=== PATIENT | male | born 1990 | race Caucasian/White ===

== ENCOUNTER 2020-03-05 10:19 | Outpatient (CLI) | payer BC, MEDICAID, SELFPAY ==
--- NOTE | 2020-03-05 10:37 | XR_ITS ---
WS: [id number] SHOULDER LEFT TECHNIQUE: 3 views of the left shoulder CLINICAL INFORMATION: SHOULDER JOINT PAIN, LEFT COMPARISON: None. FINDINGS: Normal acromioclavicular joint. Normal glenohumeral joint. Acromion is normal in appearance. Normal g lenoid. No evidence of acute fracture dislocation. XR/XR shoulder LT min 2V* [id number] IMPRESSION: Normal left shoulder.
== END 2020-03-05 10:20 | disposition home or self-care (01) ==
PROVIDERS: Family Provider Nurse Practitioner Family; PCP Nurse Practitioner Family; Visit Provider Nurse Practitioner Family
DX: M25.512 Pain in left shoulder (principal)
CPT/HCPCS: 73030

== ENCOUNTER 2020-03-21 14:18 | Outpatient (CLI) | payer BC, MEDICAID, SELFPAY ==
--- NOTE | 2020-03-21 14:25 | MR_ITS ---
WS: [id number] MRI LEFT SHOULDER NONCONTRAST TECHNIQUE: Sagittal T2, coronal T1, T2 and proton density imaging. Axial gradient PDE imaging. CLINICAL INFORMATION: LEFT SHOULDER JOINT PAIN COMPARISON: None. FINDINGS: Mild degenerative arthritis AC joint with mild downsloping of the acromion. Normal subacromial space. Supraspinatus is normal. Infraspinatus is normal. Normal teres minor. Normal subscapularis. No rotat or cuff tears. Normal biceps tendon in the bicipital groove. Glenoid labrum appears grossly normal. Normal biceps la bral anchor. Slight degenerative fraying of the glenoid labrum. MR/MR shoulder LT wo con* [id number] IMPRESSION: 1. Mild degenerative arthritis AC joint with mild downsloping of the acromion. 2. Normal rotator cuff. No high-grade rotator cuff tear. 3. Normal biceps tendon in the bicipital groove. 4. Mild degenerative fraying of the glenoid labrum. No gross labral tears. Bic eps labral anchor appears intact.
== END 2020-03-21 14:19 | disposition home or self-care (01) ==
LOC: RADWPI 14:23
PROVIDERS: Family Provider Nurse Practitioner Family; PCP Nurse Practitioner Family; Visit Provider Nurse Practitioner Family
DX: M19.012 Primary osteoarthritis, left shoulder (principal)
CPT/HCPCS: 73221

== ENCOUNTER 2020-04-02 14:44 | Outpatient (CLI) | payer BC, MEDICAID, SELFPAY ==
--- NOTE | 2020-04-02 | XR_ITS ---
WS: [id number] CERVICAL SPINE TECHNIQUE: 3 views of the cervical spine CLINICAL INFORMATION: CERVICALGIA COMPARISON: None. FINDINGS: Straightening of the normal cervical lordosis. Normal C1-2 articulation. Dens is normal in appearance . Normal prevertebral soft tissues. XR/XR cervical spine 3V* [id number] IMPRESSION: Normal cervical spine
== END 2020-04-02 14:45 | disposition home or self-care (01) ==
LOC: RADWPI 14:47
PROVIDERS: Family Provider Nurse Practitioner Family; PCP Nurse Practitioner Family; Visit Provider Nurse Practitioner Family
DX: M54.2 Cervicalgia (principal)
CPT/HCPCS: 72040

== ENCOUNTER → 2020-07-04 09:18 | Outpatient (BNVA) | payer BC, MEDICAID, SELFPAY | PROVIDERS: Family Provider Nurse Practitioner Family; PCP Nurse Practitioner Family; Referring Provider Nurse Practitioner Family; Visit Provider Anesthesiology Pain Medicine | DX: M54.12 Radiculopathy, cervical region (principal); M79.18 Myalgia, other site; F17.210 Nicotine dependence, cigarettes, uncomplicated | CPT/HCPCS: 20553; 99205; J1030; J3490 ==

== ENCOUNTER 2022-09-23 12:07 | Emergency (ER) | payer MEDICAID, SELFPAY ==
[2022-09-23] VITALS (7 sets, daily range): BP systolic 108–132; BP diastolic 70–90; PULSE 53–72; RESP 16–18; TEMP 36.8; O2SAT 93–100; BMI 23.6
--- NOTE | 2022-09-23 12:31 | CTR_ITS ---
PROCEDURE INFORMATION: Exam: CT Abdomen And Pelvis Without Contrast Exam date and time: 09/23/2022 1:04 PM Age: 31 years old Clinical indication: Pain; Other: Left lateral below ribs; Additional info: Flank pain TECHNIQUE: Imaging protocol: Computed tomography of the abdomen and pelvis without contrast. Radiation optimization: All CT scans at this facility use at least one of these dose optimization techniques: automated exposure control; mA and/or kV adjustment per patient size (includes targeted exams where dose is matched to clinical indication); or iterative reconstruction. COMPARISON: No relevant prior studies available. RADIATION DOSE METRICS: Total DLP (mGy-cm): 363 FINDINGS: Liver: Normal. No mass. Gallbladder and bile ducts: Normal. No calcified stones. No ductal dilation. Pancreas: Normal. No ductal dilation. Spleen: Normal. No splenomegaly. Adrenal glands: Normal. No mass. Kidneys and ureters: Normal. No hydronephrosis. Stomach and bowel: There are abnormal loops of jejunum in the left side of the abdomen. There is mural thickening of these loops and dilatation up to a diameter of 3.6 cm. Fluid is present throughout the small bowel. The colon is not dilated. Appendix: Normal appendix. Intraperitoneal space: Unremarkable. No free air. No significant fluid collection. Vasculature: Unremarkable. No abdominal aortic aneurysm. Lymph nodes: Unremarkable. No enlarged lymph nodes. Urinary bladder: Unremarkable as visualized. Reproductive: Unremarkable as visualized. Bones/joints: Unremarkable. No acute fracture. Soft tissues: Unremarkable. CT/CT abdomen pelvis wo con [id number] IMPRESSION: There are dilated fluid-filled loops of jejunum with mural thickening in the left side of the abdomen. Fluid is present in distal nondilated loops of small bowel. These findings can be seen with inflammatory bowel disease though a partial mid small bowel obstruction is not excluded.
--- NOTE | 2022-09-23 12:39 | ED_ITS ---
HPI - Abdominal Pain General: Chief Complaint: Abdominal Pain Stated Complaint: left side abd pain and nausea Time Seen by Provider: 09/23/22 12:30 History of Present Illness: 29-year-old male who presents with left flank pain associated with left upper and mid abdominal pain that came on acutely this morning. He describes the pain as crampy in nature, waxing and waning in intensity. He had also associated nausea and vomiting, vomiting multiple times this morning. He is noted the past couple of days that his urine has been more dark in nature and has had some difficulty urinating. He states his bowel movements have been normal. No prior history of kidney stones. No previous abdominal surgeries. No fever. Associated Symptoms: Reports nausea and vomiting; Denies change in bowel habits, chills, constipation, diarrhea, fever(s) and hematochezia Review of Systems Const: Denies: fever(s) or chills Eyes: Denies: change in vision ENMT: Denies: throat pain Card: Denies: chest pain or dyspnea on exertion Resp: Denies: dyspnea or productive cough GI: Reports: abdominal pain, nausea and vomiting; Denies: diarrhea, constipation, change in bowel habits or hematochezia : Reports: flank pain and difficulty urinating Musc: Reports: neck pain, extremity pain and limited range of motion Skin/Breast: Denies: changes in skin color or dry skin Neuro: Denies: headache(s) Psych: Reports: anxiety Juan/Lymph: Denies: easy bruising or easy bleeding PFSH ED PFSH: Family History (Updated 07/04/20 @ 09:42 by KIRA Price) Father Cancer lung cancer Psychiatric illness Unknown Diabetes Social History Smoking and tobacco status: current every day smoker Alcohol intake: current Alcohol intake frequency: holidays/special occasions only Physical Exam Const: COMMON NORMALS: average body habitus, patient oriented x3 and no limitations HENMT: COMMON NORMALS: hearing grossly normal bilaterally and external ears normal EXTERNAL EAR: Yes external ears normal Eye: COMMON NORMALS: conjunctivae normal and no scleral icterus CONJUNCTIVA: Yes conjunctivae normal Neck/C-Spine: COMMON NORMALS: no JVD Resp: COMMON NORMALS: No use of accessory muscles and clear to auscultation bilaterally AUSCULTATION: clear to auscultation bilaterally Cardio: COMMON NORMALS: no JVD, S1 normal heart sound present and S2 normal heart sound present HEART SOUNDS: S1 normal heart sound present and S2 normal heart sound present GI: COMMON NORMALS: Normal to inspection, nondistended, normoactive bowel sounds present and Soft to palpation PALPATION: Yes Soft to palpation, Yes Tenderness to palpation present (GI) (Tenderness in the left upper and lower quadrants as well as left flank area) Details: LLQ and LUQ, No Guarding due to palpation present (GI), No Rigid due to palpation and No Rebound tenderness present Extremity: OTHER: No deformity noted Neuro: COMMON NORMALS: patient oriented x3 Course ED course: Patient's been given IV fluids, IV Zofran and Toradol with minimal improvement. Was subsequently given morphine and Compazine. Laboratory eliane dies, white blood cell count is 9.5, hemoglobin 16.4, hematocrit 48.3. Platelets are 185 electrolytes are normal. BUN 14 creatinine 0.7 urinalysis he has 1+ ketones, 5-10 red blood cells, no white blood cells. CT of the abdomen and pelvis shows dilated loops of small bowel in the region of the jejunum and thickening of these bowel loops suspicious for probable inflammatory bowel disease. He could have a small partial bowel obstruction. We will p.o. challenge the patient. Reevaluation(s): Reevaluation #1: Patient's been given IV Zofran and IV Toradol with minimal improvement of his nausea and pain. We will give him IV morphine and Compazine. Discussed CT findings and laboratory findings with the patient. Vital Signs: Vital signs: Vital Signs Temperature 98.2 F 09/23/22 12:14 Pulse Rate 72 09/23/22 12:14 Respiratory Rate 16 09/23/22 15:11 Blood Pressure 132/90 09/23/22 12:14 Pulse Oximetry 97 09/23/22 15:11 Oxygen Delivery Me thod 09/23/22 12:14 MDM - Abdominal Pain Medical Decision Making 31 male who presents with left upper and lower quadrant abdominal pain associated with left flank pain, nausea and vomiting with difficulty urinating suggesting probable renal colic versus pyelonephritis. We will start an IV, give him IV fluids as well as Toradol for pain and Zofran for nausea. Will obtain labs including a CBC, CMP lipase and urinalysis. We will obtain a CT of his abdomen and pelvis to evaluate for possible kidney stones or other intra-abdominal etiologies. CT shows findings consistent with probably inflammatory bowel disease versus a mild small bowel obstruction. The patient has had no further vomiting in the ER. He said no previous abdominal surgeries I think that obstruction is not likely. Laboratory studies are unremarkable. Pain is controlled after dose of morphine. We will plan for discharge home on Levsin and Phenergan. Recommend he takes a daily probiotic. He will need follow-up with his primary care to get referred for GI evaluation. Return precautions have been discussed Differential Diagnosis Likely abdominal pain, calculus of kidney, constipation, diverticulitis, gastroenteritis, pancreatitis and small bowel obstruction Lab Data 09/23/22 12:39 09/23/22 12:39 Labs/Radiology: Radiology Impressions Abdomen/Pelvis CT 09/23/22 12:31 IMPRESSION: There are dilated fluid-filled loops of jejunum with mural thickening in the left side of the abdomen. Fluid is present in distal nondilated loops of small bowel. These findings can be seen with inflammatory bowel disease though a partial mid small bowel obstruction is not excluded. Laboratory Results WBC 9.5 10^3/uL (4.0-10.0) 09/23/22 12:39 RBC 5.48 10^6/uL (4.1-5.3) H 09/23/22 12:39 Hgb 16.4 g/dL (11.7-16.6) 09/23/22 12:39 Hct 48.3 % (42.0-52.0) 09/23/22 12:39 MCV 88.1 fl (80-94) 09/23/22 12:39 MCH 29.9 pg (28.0-34.0) 09/23/22 12:39 MCHC 34.0 g/dL (30.0-36.0) 09/23/22 12:39 RDW 12.1 % (12.1-15.1) 09/23/22 12:39 Plt Count 185 10^3/cmm (130-400) 09/23/22 12:39 MPV 9.6 fL (7.4-10.4) 09/23/22 12:39 Neut % (Auto) 57.8 % 09/23/22 12:39 Lymph % (Auto) 31.5 % 09/23/22 12:39 Butler % (Auto) 8.6 % 09/23/22 12:39 Eos % (Auto) 1.4 % 09/23/22 12:39 Baso % (Auto) 0.4 % 09/23/22 12:39 Neut # (Auto) 5.47 10^3/uL (1.8-7.7) 09/23/22 12:39 Lymph # (Auto) 3.0 10^3/uL (0.8-4.8) 09/23/22 12:39 Butler # (Auto) 0.8 10^3/uL (0.2-0.9) 09/23/22 12:39 Eos # (Auto) 0.1 10^3/uL (0.0-0.8) 09/23/22 12:39 Baso # (Auto) 0.0 10^3/uL (0.0-0.1) 09/23/22 12:39 Nucleated RBC % (auto) 0 % 09/23/22 12:39 Nucleated RBCs # 0.0 /100WBC 09/23/22 12:39 Sodium 138 mmol/L (136-145) 09/23/22 12:39 Potassium 3.5 mmol/L (3.5-5.1) 09/23/22 12:39 Chloride 102 mmol/L (98-107) 09/23/22 12:39 Carbon Dioxide 26 mmol/L (22-29) 09/23/22 12:39 Anion Gap 13.5 (5-19) 09/23/22 12:39 BUN 14 mg/dL (6-20) 09/23/22 12:39 Creatinine 0.7 mg/dL (0.7-1.2) 09/23/22 12:39 GFR Calculation 130.7 mL/min (90-130) H 09/23/22 12:39 Glucose 87 mg/dL (65-115) 09/23/22 12:39 Calculated Osmolality 286 mOsm/kg (285-295) 09/23/22 12:39 Calcium 8.9 mg/dL (8.5-10.5) 09/23/22 12:39 Total Bilirubin 0.5 mg/dL (0.15-1.2) 09/23/22 12:39 AST 20 U/L (0-40) 09/23/22 12:39 ALT 16 U/L (0-41) 09/23/22 12:39 Alkaline Phosphatase 58 U/L (40-130) 09/23/22 12:39 Total Protein 7.0 g/dL (6.6-8.7) 09/23/22 12:39 Albumin 4.8 g/dL (3.5-5.2) 09/23/22 12:39 Globulin 2.2 g/dL (1.3-4.6) 09/23/22 12:39 Lipase 20 U/L (13-60) 09/23/22 12:39 Urine Color Dark yellow (Yellow) 09/23/22 13:31 Urine Appearance Clear (CLEAR) 09/23/22 13:31 Urine pH 5 (5-7) 09/23/22 13:31 Ur Specific [place] 1.020 (1.005-1.030) 09/23/22 13:31 Urine Protein Trace (Negative) 09/23/22 13:31 Urine Glucose (UA) Norm (Normal) 09/23/22 13:31 Urine Ketones 1+ (Negative) H 09/23/22 13:31 Urine Blood 2+ (Negative) H 09/23/22 13:31 Urine Nitrate Negative (Negative) 09/23/22 13:31 Urine Bilirubin 1+ (Negative) H 09/23/22 13:31 Urine Urobilinogen 1 mg/dL (Negative) H 09/23/22 13:31 Ur Leukocyte Esterase Negative (Negative) 09/23/22 13:31 Urine RBC 5-10 /hpf (0-2) H 09/23/22 13:31 Urine WBC None /hpf (0-5) 09/23/22 13:31 Ur Squamous Epith Cells 0-4 /hpf (0-5) H 09/23/22 13:31 Amorphous Sediment Not Reportable 09/23/22 13:31 Urine Bacteria None /hpf (NONE) 09/23/22 13:31 Urine Mucus 2+ /hpf 09/23/22 13:31 Discharge Plan Discharge Patient Disposition: Home Clinical Impression: Inflammatory bowel disease Condition: Stable Prescriptions: New Levsin 0.125 mg tablet 0.125 mg PO Q6H PRN (Reason: dyspepsia) Qty: 30 0RF promethazine 25 mg tablet 25 mg PO QID PRN (Reason: nausea) Qty: 20 0RF Discharge Orders: Discharge ED (Routine); Ordered 09/23/22 Ordered By: Lorna Donaldson Referrals: Corey Hawk MD [Primary Care Provider] - Discharge Diet: Advance as tolerated and Clear Liquid Discharge Activity: Increase activity as tolerated Patient Instructions: Crohn Disease (ED), Opioid Safety, Pain Management Activity Restrictions/Additional Instructions: Take the Levsin 4 times daily as needed for pain. Take the Phenergan every 4-6 hours as needed for nausea and vomiting. Start with clear liquids, advance your diet as tolerated. Return if you have increased pain, fever or vomiting. You can also supplement with Tylenol or ibuprofen as needed for pain. You need to be on a high-fiber diet. Take a daily probiotic. Follow-up with your primary care doctor for GI referral in the next 3 to 5 days. Coding Level of Care Code ED Emergency Care Attendant for Chg Fwd Exam Detailed
[2022-09-23] MEDS: ondansetron 2 mg/ML SDV 2 mL 4 MG IVP (12:40)
[2022-09-23] MEDS: ketorolac 30 mg/mL INJ IVP (12:40)
[2022-09-23] MEDS: sodium chloride 0.9% 1,000 ML 999 ML IV (12:40)
[2022-09-23 12:44] LABS: Basophils % 0.4 %; Eosinophils # 0.1 10^3/uL (0.0-0.8); Eosinophils % 1.4 %; Hematocrit 48.3 % (42.0-52.0); Hemoglobin 16.4 g/dL (11.7-16.6); Lymphocytes % 31.5 %; Mean Corpuscular Hemoglobin 29.9 pg (28.0-34.0); Mean Corpuscular Volume 88.1 fl (80-94); Mean Platelet Volume 9.6 fL (7.4-10.4); Monocytes # 0.8 10^3/uL (0.2-0.9); Monocytes % 8.6 %; Neutrophils # 5.47 10^3/uL (1.8-7.7); Neutrophils % 57.8 %; Nucleated Red Blood Cells % 0 %; Platelet Count 185 10^3/cmm (130-400); Red Blood Count 5.48 10^6/uL (4.1-5.3); Red Cell Distribution Width 12.1 % (12.1-15.1); White Blood Count 9.5 10^3/uL (4.0-10.0)
[2022-09-23 13:12] LABS: Alanine Aminotransferase 16 U/L (0-41); Albumin Level 4.8 g/dL (3.5-5.2); Alkaline Phosphatase 58 U/L (40-130); Anion Gap 13.5 (5-19); Aspartate Amino Transferase 20 U/L (0-40); Blood Urea Nitrogen 14 mg/dL (6-20); Calcium 8.9 mg/dL (8.5-10.5); Carbon Dioxide 26 mmol/L (22-29); Chloride 102 mmol/L (98-107); Globulin 2.2 g/dL (1.3-4.6); Glomerular Filtration Rate 130.7 mL/min (90-130); Glucose 87 mg/dL (65-115); Lipase 20 U/L (13-60); Osmolality Calculated 286 mOsm/kg (285-295); Potassium 3.5 mmol/L (3.5-5.1); Sodium 138 mmol/L (136-145); Total Bilirubin 0.5 mg/dL (0.15-1.2)
[2022-09-23 13:44] LABS: Add Urine Microscopic? YES; Bilirubin Urine 1+ (Negative); Blood Urine 2+ (Negative); Glucose Urine UA Norm (Normal); Ketones Urine 1+ (Negative); Leukocyte Esterase Urine Negative (Negative); Mucus Urine 2+ /hpf; Nitrate Urine Negative (Negative); Protein Urine Trace (Negative); Squamous Epithelial Cell Urine 0-4 /hpf (0-5); Urine Appearance Clear (CLEAR); Urine Color Dark Yellow (Yellow); Urobilinogen Urine 1 mg/dL (Negative); pH Urine 5 (5-7)
[2022-09-23 13:45] LABS: Add Urine Culture? No
[2022-09-23] MEDS: morphine 4 mg/mL SDV 1 mL IVP (15:11)
[2022-09-23] MEDS: prochlorperazine 10 mg/2 mL Inj IVP (15:11)
== END 2022-09-23 15:44 | disposition home or self-care (01) ==
PROVIDERS: Emergency Provider Emergency Medicine; PCP Family Medicine
DX: K63.89 Other specified diseases of intestine (principal); F17.210 Nicotine dependence, cigarettes, uncomplicated
CPT/HCPCS: 74176; 80053; 81001; 83690; 85025; 96361; 96374; 96375; 99285; J0780; J1885; J2270; J2405; J7030

== ENCOUNTER → 2022-10-07 14:54 | Outpatient (BNVA) | payer MEDICAID, SELFPAY | PROVIDERS: PCP Family Medicine; Visit Provider Family Medicine | DX: K52.9 Noninfective gastroenteritis and colitis, unspecified (principal) | CPT/HCPCS: 80053; 84439; 84443; 85025; 85651; 86140 ==

== ENCOUNTER 2022-11-28 15:39 | Emergency (ER) | payer MEDICAID, SELFPAY ==
[2022-11-28 15:40] VITALS: BP 118/82; PULSE 65; RESP 16; TEMP 36.4; O2SAT 96
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
--- NOTE | 2022-11-28 15:52 | ED_ITS ---
HPI - Extremity Problem General: Chief complaint: Extremity Injury, Upper Stated complaint: right finger lac Time Seen by Provider: 11/28/22 15:39 History of Present Illness: Patient is a 32-year-old male comes to the ED with right hand finger laceration. Injury occurred just prior to arrival. Patient says he was working on some metal palak and accidentally cut his right middle and ring fingers on a metal piece. Patient use pressure bandage to help stop bleeding. He rates his pain currently a 7 out of 10. Patient is unsure of his last tetanus. Associated symptoms: Deny chest pain, fever(s) or rash Review of Systems Const: Denies: fever(s), chills or fatigue Eyes: Denies: change in vision or eye discomfort ENMT: Denies: throat pain, odynophagia, nasal discharge or nasal congestion Card: Denies: chest pain, palpitations, edema, swelling of feet/ankles, dyspnea on exertion or orthopnea Resp: Denies: dyspnea, productive cough or non-productive cough GI: Denies: abdominal pain, nausea, vomiting, diarrhea, constipation or hematochezia : Denies: flank pain, difficulty urinating, dysuria or hematuria Musc: Denies: neck pain, back pain or extremity swelling Skin/Breast: Reports: new lesions (Right hand-third and fourth digit laceration); Denies: rash Neuro: Denies: headache(s), numbness in extremities or weakness in extremities [facility] ED PFSH: Medical History No pertinent family history Surgical History History of tonsillectomy and adenoidectomy Family History Father Cancer lung cancer Psychiatric illness Unknown Diabetes Social History Smoking and tobacco status: current every day smoker cigarettes Second hand smoke exposure: No Smoking risk assessment/counseling performed?: No Alcohol intake: current Alcohol intake frequency: holidays/special occasions only Counseling given: Yes Adopted: No Caregiver/support person: No Lives independently: Yes Household members: spouse Housing: House Marital status: Number of children: 4 Highest education level completed: Some College, No Degree service: Yes status: Active Duty branch: [employer] Current occupational status: employed 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 Current occupational exposures/hazards: No Pets and animals: No Sexually active: Yes Current gender identity: Male Special santy needs: No Agree to transfusion: No Physical Exam Const: COMMON NORMALS: no acute distress, patient oriented x3, healthy appearing and alert GENERAL APPEARANCE: cooperative and comfortable HENMT: COMMON NORMALS: normocephalic HEAD & SCALP: normocephalic MOUTH: Normal oral and palatal mucosa present THROAT: posterior oropharynx normal and uvula midline Neck/C-Spine: COMMON NORMALS: supple GENERAL: Yes normal visual inspection Resp: COMMON NORMALS: normal respiratory effort, No retractions, No use of accessory muscles and clear to auscultation bilaterally AUSCULTATION: clear to auscultation bilaterally Cardio: COMMON NORMALS: regular rate, regular rhythm, S1 normal heart sound present, S2 normal heart sound present, No gallops present (Cardio), No clicks present (Cardio), No murmurs present (Cardio) and Peripheral pulses 2+ throughout RATE: regular rate RHYTHM: regular rhythm HEART SOUNDS: S1 normal heart sound present and S2 normal heart sound present PERIPHERAL PU LSES: Peripheral pulses 2+ throughout GI: COMMON NORMALS: Normal to inspection, nondistended, normoactive bowel sounds present, Soft to palpation, non-tender and no masses PALPATION: Yes Soft to palpation : COMMON NORMALS: Yes no CVA tenderness BLADDER/KIDNEY EXAM: Yes no CVA tenderness Back/Pelvis: COMMON NORMALS: no CVA tenderness Extremity: NARRATIVE EXTREMITY EXAM: Right hand?third and fourth digits lacerations noted. No nailbed bed or nail damage noted. Laceration to distal end of third digit is approximately 2 cm in length and is a flap-like in shape. The laceration to to distal end of the fourth digit is approximately 1 cm in length and is flap-like shaped as well. Minimal active bleeding noted. No foreign body seen. Full range of motion in fingers with no concern for tendon laceration. Neuro: COMMON NORMALS: patient oriented x3 SENSORIUM/ORIENTATION: Yes alert GAIT: Yes Normal gait present Skin: GENERAL SKIN EXAM: dry skin Procedures Laceration Laceration 1: Site: hand (Right hand-third digit) Side (If applicable): right Size (cm): 2 Description: flap and clean Depth: simple, single layer Local Anesthetic: lidocaine 1% Amount of anesthesia used (mL): 5 Pre-repair: irrigated extensively (With normal saline and Betadine ) Skin layer closed with: nylon Size (cm): 4-0 Number of sutures: 4 Technique: simple, interrupted Laceration 2: Site: hand (right hand-4th digit) Side (If applicable): right Size (cm): 1 Description: flap Depth: simple, single layer Local Anesthetic: lidocaine 1% Amount of anesthesia used (mL): 5 Pre-repair: irrigated extensively (Normal saline and beta iodine) Skin layer closed with: nylon Size (cm): 4-0 Number of sutures: 4 Technique: simple, interrupted Course Vital Signs: Vital signs: Vital Signs Temperature 97.6 F 11/28/22 15:40 Pulse Rate 78 11/28/22 16:48 Respiratory Rate 16 11/28/22 16:48 Blood Pressure 138/72 11/28/22 16:48 Pulse Oximetry 98 11/28/22 16:48 Oxygen Delivery Me thod 11/28/22 15:40 MDM - Extremity (Nontraumatic) Medical Decision Making Patient is a 32-year-old male comes to the ED with laceration to right hand third and fourth digit. He was given updated tetanus here in the ED.Right hand?third and fourth digits lacerations noted. No nailbed bed or nail damage noted. Laceration to distal end of third digit is approximately 2 cm in length and is a flap-like in shape. The laceration to to distal end of the fourth digit is approximately 1 cm in length and is flap-like shaped as well. Minimal active bleeding noted. No foreign body seen. Full range of motion in fingers with no concern for tendon laceration. Vitals are stable. Patient's lacerations were irrigated says it was normal saline and beta iodine solution. X-ray of hand showed no acute fractures or foreign bodies. Lidocaine 1% was used as local. 8 sutures were used in total to close up the 2 lacerations on fingers. Triple antibiotic ointment and bandage placed by nurse. Patient was instructed on how to care for laceration site. He was discharged home with a prophylactic prescription of Keflex. Told to have sutures removed in the next 7 to 10 days. Return to ED precautions given. Patient understood agree with plan. Lab Data Radiology Impressions Hand X-Ray 11/28/22 15:40 IMPRESSION: No acute fracture or dislocation. Discharge Plan Discharge Patient Disposition: Home Clinical Impression: Finger laceration Qualifiers: Encounter type: initial encounter Finger: unspecified finger Damage to nail status: without damage Foreign body presence: without foreign body Laterality: right Qualified Code(s): S61.219A - Laceration without foreign body of unspecified finger without damage to nail, initial encounter Condition: Stable Prescriptions: New cephalexin 500 mg capsule 500 mg PO Q6H 5 Days Qty: 20 0RF No Action pantoprazole 40 mg tablet,delayed release (DR/EC) 40 mg PO DAILY Qty: 30 2RF Discharge Orders: Discharge ED (Routine); Ordered 11/28/22 Ordered By: Fabian Segura Referrals: Omega Awad DO [Primary Care Provider] - Discharge Diet: Regular Discharge Activity: Limit activity as instructed Patient Instructions: Finger Laceration (ED) Activity Restrictions/Additional Instructions: Take full course of antibiotics as prescribed. Keep laceration site clean and dry daily. Clean daily with soap and water and then cover with bandage. Watch for signs of infection such as redness, warmth, increased tenderness and puslike drainage. If you see the signs of infection return to the ED, urgent care or PCP for reevaluation. call your PCP to schedule a follow-up appointment for reevaluation and suture removal in about 7- 10 days. You can take [id number] Tylenol or ibuprofen for pain. Follow discharge plans as discussed. You can return to the ED if symptoms worsen. Coding Level of Care Code ED Principal Archaeologist for Nini Sandoval
[2022-11-28] MEDS: tetanus-dipt-pertussis 0.5 mL SDV IM (15:59)
[2022-11-28] MEDS: lidocaine 1% INJ 10 mL (per mL) INJECTION (16:06)
[2022-11-28] MEDS: neomycin-poly-bacitracin oint 28 gm 1 APPLIC TOPICAL (16:43)
--- NOTE | 2022-11-28 16:47 | PC.NURSE ---
Pts hand was cleaned and wrapped,
[2022-11-28 16:48] VITALS: BP 138/72; PULSE 78; RESP 16; O2SAT 98
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
== END 2022-11-28 16:50 | disposition home or self-care (01) ==
PROVIDERS: Emergency Provider Physician Assistant; PCP Family Medicine
DX: S61.212A Laceration without foreign body of right middle finger without damage to nail, initial encounter (principal); W45.8XXA Other foreign body or object entering through skin, initial encounter; Z23 Encounter for immunization
CPT/HCPCS: 12002; 73130; 90471; 90715; 99283

== ENCOUNTER 2023-02-03 15:28 | Emergency (ER) | payer MEDICAID, SELFPAY ==
[2023-02-03 15:31] VITALS: BP 126/85; PULSE 69; RESP 18; TEMP 36.7; O2SAT 99; BMI 22.8
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
[2023-02-03] MEDS: ketorolac 60 mg/2 mL INJ IM (16:12)
[2023-02-03] MEDS: orphenadrine 30 mg/mL Inj 2 mL 60 MG IM (16:13)
[2023-02-03 17:14] VITALS: BP 126/85; PULSE 69; RESP 18; TEMP 36.7; O2SAT 99
== END 2023-02-03 17:15 | disposition home or self-care (01) ==
PROVIDERS: Emergency Provider Physician Assistant; PCP Family Medicine
DX: R07.81 Pleurodynia (principal); M54.2 Cervicalgia
CPT/HCPCS: 71101; 72040; 96372; 99284; J1885; J2360

== ENCOUNTER 2023-02-16 12:06 | Emergency (ER) | payer MEDICAID, SELFPAY ==
[2023-02-16 12:31] VITALS: BP 122/84; PULSE 90; RESP 16; O2SAT 94
--- NOTE | 2023-02-16 12:46 | XRR_ITS ---
PROCEDURE INFORMATION: Exam: XR Left Ribs with PA Chest Exam date and time: 02/16/2023 12:59 PM Age: 32 years old Clinical indication: Chest wall pain; Left; Additional info: Rib pain TECHNIQUE: Imaging protocol: Radiologic exam of the left ribs with PA chest. Views: 3 views COMPARISON: CR XR cervical spine 3V* [id number] 02/03/2023 3:49 PM FINDINGS: Lungs: Unremarkable. No consolidation. Pleural spaces: Unremarkable. No pleural effusion. No pneumothorax. Heart/Mediastinum: Unremarkable. No cardiomegaly. Bones/joints: Unremarkable. XR/XR ribs LT mn 3V w CXR1V [id number] IMPRESSION: No acute findings.
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
--- NOTE | 2023-02-16 13:11 | XRR_ITS ---
PROCEDURE INFORMATION: Exam: XR Right Ribs Exam date and time: 02/16/2023 1:18 PM Age: 32 years old Clinical indication: Chest wall pain; Right TECHNIQUE: Imaging protocol: Radiologic exam of the right ribs. Views: 2 views. COMPARISON: CR XR ribs RT mn 3V w CXR1V [id number] 02/03/2023 3:49 PM FINDINGS: Bones/joints: Negative for acute bony abnormality. Soft tissues: Normal. XR/XR ribs RT 2V* [id number] IMPRESSION: No acute at bone abnormality.
[2023-02-16] MEDS: ketorolac 60 mg/2 mL INJ IM (13:16)
[2023-02-16 14:09] VITALS: PULSE 70; O2SAT 98
== END 2023-02-16 14:10 | disposition home or self-care (01) ==
PROVIDERS: Emergency Provider Family Medicine; PCP Family Medicine
DX: R07.81 Pleurodynia (principal); F17.210 Nicotine dependence, cigarettes, uncomplicated
CPT/HCPCS: 71100; 71101; 96372; 99284; J1885

== ENCOUNTER 2024-11-09 14:18 | Outpatient (CLI) | payer MEDICAID, SELFPAY ==
--- NOTE | 2024-11-09 14:22 | XR_ITS ---
WS: [id number] XR thoracic spine 3V* [id number] REASON FOR EXAM: Upper back pain FINDINGS: Normal thoracic spine curvatures. No significant compression deformity or focal lesion of the thoracic vertebral bodies. Minimal disc space narrowing with minimal osteophytosis in the mid thoracic spine. XR/XR thoracic spine 3V* [id number] IMPRESSION: Minimal degenerative spondylosis in the thoracic spine.
== END 2024-11-09 14:19 | disposition home or self-care (01) ==
LOC: RAD 14:20
PROVIDERS: PCP Family Medicine; Visit Provider Registered Nurse Neonatal Intensive Care
DX: M54.9 Dorsalgia, unspecified (principal)
CPT/HCPCS: 72072

== ENCOUNTER → 2024-11-27 11:04 | Outpatient (BNVA) | payer MEDICAID, SELFPAY | PROVIDERS: PCP Family Medicine; Visit Provider Registered Nurse Neonatal Intensive Care | DX: S61.031A Puncture wound without foreign body of right thumb without damage to nail, initial encounter (principal); S61.032A Puncture wound without foreign body of left thumb without damage to nail, initial encounter; X58.XXXA Exposure to other specified factors, initial encounter | CPT/HCPCS: 73130 ==